=== PATIENT | male | born 1990 | race Caucasian/White ===

== ENCOUNTER 2018-09-27 12:25 | Emergency (ER) | payer OTHER ==
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
[2018-09-27] MEDS ORDERED: OXYCODONE/APAP 5/325 TAB PO ONE (12:54)
[2018-09-27 13:38] VITALS: BP 134/97
== END 2018-09-27 13:36 | disposition home or self-care (01) ==
PROC: 2W3EX1Z Immobilization of Right Hand using Splint (ICD-10-PCS; principal; 2018-09-27)
DX: S52.211A Greenstick fracture of shaft of right ulna, initial encounter for closed fracture (principal); Y04.8XXA Assault by other bodily force, initial encounter
CPT/HCPCS: A4565